=== PATIENT | female | born 1940 | race Caucasian/White ===

== ENCOUNTER 2019-01-06 10:45 | Day surgery (SDC) | payer MEDICARE, OTHER ==
[~2019-01-06] VITALS: Ht 152.4 cm; Wt 83.9 kg
[~2019-01-06 10:45] MED LIST: AMLODIPINE2.5 MG PO; ASPIRIN EC81 MG PO; ATENOLOL25 MG PO; CALCIUM600 M1 PO; CLARITIN-D1 TA2 PO; HYZAAR1 TA1 PO; LIPITOR10 M1 PO; LORTAB 5/3255 MG PO; LOSARTAN/HCT1 TA1 PO; NEXIUM40 M1 PO; SINGULAIR10 MG PO; VITAMIN C1000 MG PO; ZYRTEC10 MG PO
[2019-01-06 15:10] VITALS: BP 150/65
== END 2019-01-06 14:45 | disposition home or self-care (01) ==
LOC: ENDO 10:45
PROVIDERS: ATTEND Surgery
PROC: 0KBG0ZZ Excision of Left Trunk Muscle, Open Approach (ICD-10-PCS; principal; 2019-01-06)
PROC: 0DJ08ZZ Inspection of Upper Intestinal Tract, Via Natural or Artificial Opening Endoscopic (ICD-10-PCS; 2019-01-06)
PROC: 0DJD8ZZ Inspection of Lower Intestinal Tract, Via Natural or Artificial Opening Endoscopic (ICD-10-PCS; 2019-01-06)
DX: D17.9 Benign lipomatous neoplasm, unspecified (principal); Z12.11 Encounter for screening for malignant neoplasm of colon; K21.9 Gastro-esophageal reflux disease without esophagitis; K44.9 Diaphragmatic hernia without obstruction or gangrene; K29.70 Gastritis, unspecified, without bleeding; Z86.010 Personal history of colon polyps
CPT/HCPCS: 21932; 43235; G0105

== ENCOUNTER 2021-08-15 15:45 | Emergency (ER) | payer MEDICARE, OTHER ==
[~2021-08-15] VITALS: Ht 152.4 cm; Wt 83.9 kg
[2021-08-15 16:49] LABS: HEMATOCRIT 37.4 % (37.0-47.0); HEMOGLOBIN 11.9 g/dl (12.0-16.0); IMMATURE GRANULOCYTES 0.5 % (0.0-5.0); MEAN CELL VOLUME 82.4 fL CALC (80.0-100.0); MEAN CORPUSCULAR HGB 26.2 pG CALC (26.0-32.0); MEAN CORPUSCULAR HGB CONC 31.8 g/dL CAL (32.0-36.0); NEUT# 4.05 thou/uL (2.00-7.15); RED BLOOD COUNT 4.54 mill/uL (4.20-5.60); RED CELL DISTRI WIDTH 15.4 % (11.5-15.5)
[2021-08-15 16:50] LABS: ALBUMIN 3.5 g/dL (3.2-5.0); ALKALINE PHOSPHATASE 70 u/l (38-126); BILIRUBIN, TOTAL 0.6 mg/dL (0.0-1.4); BUN 15 mg/dL (8-23); BUN/CREATININE RATIO 17 (12-20 (CALC)); CHLORIDE 96 mmol/l (95-108); CREATININE 0.9 mg/dL (0.5-1.0); GFR 60 ML/MIN (>=60 (CALC)); GFR FOR AFR.AMER. > 60 ML/MIN (>=60 (CALC)); POTASSIUM 4.5 mmol/l (3.5-5.1); SGOT/AST 35 u/l (9-36); TOTAL PROTEIN 6.6 g/dL (6.3-8.2)
[2021-08-15 16:53] LABS: ANION GAP 14 (6-22 (CALC)); CARBON DIOXIDE 24 mmol/l (22-30); SODIUM 129 mmol/l (137-146)
[2021-08-15] MEDS ORDERED: HYDROCO/APAP1 TA9 PO (17:50)
[2021-08-15] MEDS ORDERED: DIFLUCAN100 M1 PO (17:50)
[2021-08-15] MEDS ORDERED: BACTRIM DS1 TAB PO (17:50)
[2021-08-15] MEDS ORDERED: OMNICEF300 M1 PO (17:50)
[2021-08-15] MEDS ORDERED: ZOFRAN4 MG/TAB PO (17:50)
[2021-08-15 18:05] VITALS: BP 147/84
== END 2021-08-15 18:15 | disposition home or self-care (01) ==
LOC: ED 15:45
PROVIDERS: Internal Medicine
DX: L03.116 Cellulitis of left lower limb (principal); E87.1 Hypo-osmolality and hyponatremia

== ENCOUNTER 2022-12-26 07:21 | Emergency (ER) | payer MEDICARE, OTHER ==
[~2022-12-26] VITALS: Ht 152.4 cm; Wt 85.2 kg
[~2022-12-26 07:21] MED LIST changes: +BACTRIM DS1 TAB PO; +DIFLUCAN100 M1 PO; +HYDROCO/APAP1 TA9 PO; +OMNICEF300 M1 PO; +ZOFRAN4 MG/TAB PO
[2022-12-26 10:39] VITALS: BP 170/71
[2022-12-26] MEDS ORDERED: PERCOCET 5/325M1 TAB PO (16:32)
== END 2022-12-26 10:46 | disposition home or self-care (01) ==
LOC: ED 07:21
DX: S00.93XA Contusion of unspecified part of head, initial encounter (principal); S73.101A Unspecified sprain of right hip, initial encounter; S83.91XA Sprain of unspecified site of right knee, initial encounter; W18.39XA Other fall on same level, initial encounter; Y93.89 Activity, other specified; Y92.002 Bathroom of unspecified non-institutional (private) residence as the place of occurrence of the external cause

== ENCOUNTER 2023-06-11 19:50 | Emergency (ER) | payer MEDICARE, OTHER ==
[~2023-06-11] VITALS: Ht 152.4 cm; Wt 80.0 kg
[2023-06-11] VITALS (14 sets, daily range): BP systolic 111–193; BP diastolic 58–90
[~2023-06-11 19:50] MED LIST changes: +PERCOCET 5/325M1 TAB PO
[2023-06-11] MEDS ORDERED: HYDROmorphone HCL 2 MG/AMP IM ONE (20:25)
[2023-06-11] MEDS ORDERED: KETOROLAC TROMETHAMINE 30 MG/ML SDV IM ONE (20:25)
[2023-06-11] MEDS ORDERED: METHOCARBAMOL 500 MG/TAB PO ONE (21:10)
[2023-06-11] MEDS ORDERED: MELOXICAM7.5 MG PO (23:05)
[2023-06-11] MEDS ORDERED: methylPREDNISolone Sod Succ 40 MG/ML SDV IM ONE (23:05)
== END 2023-06-11 23:15 | disposition home or self-care (01) ==
LOC: ED 19:50
DX: M25.551 Pain in right hip (principal); M16.12 Unilateral primary osteoarthritis, left hip; Z96.641 Presence of right artificial hip joint

== ENCOUNTER 2023-12-07 07:47 | Day surgery (SDC) | payer MEDICARE, OTHER ==
[~2023-12-07] VITALS: Ht 152.4 cm; Wt 83.9 kg
[~2023-12-07 07:47] MED LIST changes: +KLOR-CON M2020 MEQ PO; +MELOXICAM7.5 MG PO; +OMEPRAZOLE DR40 MG PO
[2023-12-07] MEDS ORDERED: FAMOTIDINE 10MG/ML 2ML SDV IV ONE (08:03)
[2023-12-07] MEDS ORDERED: LACTATED RINGER'S 1,000 ML IV ONE (08:03)
[2023-12-07 09:38] VITALS: BP 145/76
[2023-12-07] MEDS ORDERED: LIDOCAINE HCL 2% 2ML SDV IV ONE (11:44)
[2023-12-07] MEDS ORDERED: PROPOFOL 200 MG/20 ML VIAL IV ONE (11:44)
[2023-12-07] MEDS ORDERED: hydrALAZINE HCL 20 MG/ML VIAL(1 ML) IV ONE (11:44)
== END 2023-12-07 09:45 | disposition home or self-care (01) ==
LOC: ORM 07:47
PROVIDERS: ATTEND Internal Medicine Gastroenterology
PROC: 0DBE8ZX Excision of Large Intestine, Via Natural or Artificial Opening Endoscopic, Diagnostic (ICD-10-PCS; principal; 2023-12-07)
DX: K52.9 Noninfective gastroenteritis and colitis, unspecified (principal); R15.2 Fecal urgency; K64.8 Other hemorrhoids; I10 Essential (primary) hypertension; E78.5 Hyperlipidemia, unspecified; K21.9 Gastro-esophageal reflux disease without esophagitis; F41.9 Anxiety disorder, unspecified; Z86.010 Personal history of colon polyps

== ENCOUNTER 2024-05-22 16:31 | Emergency (ER) | payer MEDICARE, OTHER ==
[~2024-05-22] VITALS: Ht 152.4 cm; Wt 78.0 kg
[2024-05-22 16:40] VITALS: BP 184/74
[2024-05-22 17:59] LABS: BASO% 1.1 % (0-3); EOS% 1.9 % (0-8); HEMATOCRIT 40.5 % (37.0-47.0); HEMOGLOBIN 12.6 g/dl (12.0-16.0); IMMATURE GRANULOCYTES 0.3 % (0.0-5.0); LYMPH% 31.5 % (15-41); MEAN CORPUSCULAR HGB 26.1 pG CALC (26.0-32.0); MEAN CORPUSCULAR HGB CONC 31.1 g/dL CAL (32.0-36.0); MONO% 21.2 % (2-13); NEUT# 1.58 thou/uL (2.00-7.15); RED BLOOD COUNT 4.82 mill/uL (4.20-5.60); RED CELL DISTRI WIDTH 16.4 % (11.5-15.5)
[2024-05-22 18:09] VITALS: BP 205/80
[2024-05-22 18:10] VITALS: BP 205/80
[2024-05-22 18:10] LABS: ALBUMIN 3.9 g/dL (3.2-5.0); BILIRUBIN, TOTAL 1.3 mg/dL (0.02-1.3); CREATININE 0.7 mg/dL (0.5-1.0); POTASSIUM 4.1 mmol/l (3.5-5.1); TOTAL PROTEIN 6.6 g/dL (6.3-8.2)
[2024-05-22] MEDS ORDERED: guaiFENesin-CODEINE 200-20 MG/10 ML UDC PO ONE (18:50)
[2024-05-22] MEDS ORDERED: AMOX/K CLAV875 M1 PO (18:53)
[2024-05-22] MEDS ORDERED: ZITHROMAX Z-PA250 MG PO (18:53)
[2024-05-22] MEDS ORDERED: CHERATUSSIN PO (18:54)
[2024-05-22] MEDS ORDERED: VENTOLIN HFA108 MCG PO (18:54)
[2024-05-22] MEDS ORDERED: AZITHROMYCIN 250 MG/TAB PO ONE (18:55)
[2024-05-22] MEDS ORDERED: AMOXICILLIN & POT CLAVULANATE 875 MG/TAB PO ONE (18:55)
== END 2024-05-22 19:10 | disposition home or self-care (01) ==
LOC: ED 16:31
PROVIDERS: Family Medicine
DX: J06.9 Acute upper respiratory infection, unspecified (principal); Z20.822 Contact with and (suspected) exposure to COVID-19